=== PATIENT | male | born 1995 | race Caucasian/White ===

== ENCOUNTER 2017-06-13 12:27 | Emergency (ER) | payer OTHER ==
[~2017-06-13] VITALS: Ht 170.2 cm; Wt 70.0 kg
[2017-06-13 16:53] VITALS: BP 118/76
== END 2017-06-13 16:54 | disposition home or self-care (01) ==
LOC: ER 12:27
DX: M25.572 Pain in left ankle and joints of left foot (principal); S90.512A Abrasion, left ankle, initial encounter; V03.90XA Pedestrian on foot injured in collision with car, pick-up truck or van, unspecified whether traffic or nontraffic accident, initial encounter; Y93.89 Activity, other specified; Y92.89 Other specified places as the place of occurrence of the external cause; S90.02XA Contusion of left ankle, initial encounter
CPT/HCPCS: 72100; 73610; 73630; 99284; Z7610